=== PATIENT | female | born 1970 | race Caucasian/White ===

== ENCOUNTER 2023-06-19 09:02 | Outpatient (CLI) | payer OTHER, SELFPAY ==
--- NOTE | 2023-06-19 09:15 | CRLHL7_ITS ---
For Patients: As a result of the Century Cures Act, medical imaging exams and procedure reports are released immediately into your electronic medical record. You may view this report before your referring provider. If you have questions, please contact your health care provider. BILATERAL SCREENING MAMMOGRAM WITH COMPUTER-AIDED DETECTION TECHNIQUE: CC and MLO views were obtained. These mammographic images have been obtained using full-field digital technique. These mammographic images were interpreted with the benefit of computer-aided detection. COMPARISON FILM: 08/30/21, 05/25/20, 04/01/19. FINDINGS: There are scattered areas of fibroglandular density IMPRESSION: There is no radiographic evidence for malignancy. ASSESSMENT: BI-RADS Category 1: Negative RECOMMENDATION: Routine screening mammogram in 1 year. A lay language report of this examination will be provided to the patient. Jose Stoddard M.D. Diagnostic Radiologist [email or web address] EDWARD/Dictated by: Jose Stoddard MD @ 06/19/2023 12:29:00 PM (Electronically Signed)
== END 2023-06-19 09:03 | disposition home or self-care (01) ==
LOC: MAMMO 09:03
PROVIDERS: PCP Family Medicine; Visit Provider Physician Assistant
DX: Z12.31 Encounter for screening mammogram for malignant neoplasm of breast (principal)
CPT/HCPCS: 77067

== ENCOUNTER 2024-09-15 09:11 | Outpatient (CLI) | payer OTHER, SELFPAY ==
--- NOTE | 2024-09-15 09:15 | CRLHL7_ITS ---
For Patients: As a result of the Century Cures Act, medical imaging exams and procedure reports are released immediately into your electronic medical record. You may view this report before your referring provider. If you have questions, please contact your health care provider. BILATERAL SCREENING MAMMOGRAM WITH COMPUTER-AIDED DETECTION AND TOMOSYNTHESIS TECHNIQUE: CC and MLO views were obtained. These mammographic images have been obtained using full-field digital technique. These mammographic images were interpreted with the benefit of computer-aided detection. Breast Tomosynthesis was used in this interpretation. COMPARISON FILM: 06/19/23, 08/30/21, 05/25/20. FINDINGS: There are scattered areas of fibroglandular density. IMPRESSION: There is no radiographic evidence for malignancy. ASSESSMENT: BI-RADS Category 1: Negative RECOMMENDATION: Routine screening mammogram in 1 year. A lay language report of this examination will be provided to the patient. Jose Stoddard M.D. Diagnostic Radiologist [email or web address] SP/Dictated by: Jose Stoddard MD @ 09/15/2024 12:16:00 PM (Electronically Signed)
== END 2024-09-15 09:12 | disposition home or self-care (01) ==
LOC: MAMMO 09:13
PROVIDERS: PCP Family Medicine; Visit Provider Family Medicine
DX: Z12.31 Encounter for screening mammogram for malignant neoplasm of breast (principal)
CPT/HCPCS: 77063; 77067

== ENCOUNTER 2024-11-22 15:01 | Observation (INO) | payer OTHER, SELFPAY ==
[2024-11-22] VITALS (15 sets, daily range): BP systolic 90–142; BP diastolic 50–87; PULSE 53–103; RESP 16–18; TEMP 36.6–36.8; O2SAT 92–99; BMI 22.3; BMI 22.5
--- OUTSIDE RECORDS SUMMARY | 2024-11-22 15:03 | XMS_ITS | Clinical Summary ---
Author Organization [employer] [facility] Address [address] [place] [address] Care Team Providers Care Supervisor Bridges And Buildings Name Role Phone Gaviota Mohr MD Primary Care Provider Allergies No known active allergies Medications MIDRIN 325 MG-65 MG-100 MG CAPIndications:M igraine, unspecified, without mention of intractable migraine without mention of status migrainosus 2 caplets at the beginning of the Headache, then may take another ONE caplet each hour until a total of 5 caplets in a 12 hour period. 30 0 8 Active Active Problems Problem Noted Date Diagnosed Date Advanced maternal age, antepartum condition or c omplication 11/09/2008 IRREGULAR MENSTRUATION 03/24/2008 Other abnormal glucose 03/13/2008 Overview (03/13/2008): 100 in February 2008- needs another DYSPLASIA, CERVIX (UTERI) 09/01/1999 IRREGULAR MENSTRUATION 09/01/1999 Migraine, unspecified, witho ut mention of intractable migraine without mention of status migrainosus Immunizations Immunization Administration Dates Next Due Hepatitis B (Peds) 08/01/2005,03/09/2005, 005 Td (Age >=7 Years) 01/12/2005,05/03/1998 Tdap 03/06/2008 Family History Medical History Relation Name Comments Hypertension Father Other Father multiple system s atrophy Asthma Mother Thyroid Disease Mother hypo Alcohol/Drug Paternal Grandfather etoh Hypertension Paternal Grandfather Thyroid Disease Sister hypo Relation Name Status Comments Father Mother Paternal Grandfather Sister Social History Tobacco Use Types Packs/Day Years Used Date Smoking Tobacco: Former Cigarettes Q uit: 08/26/2004 Alcohol Use Standard Drinks/Week Comments Yes 0 (1 standard drink = 0.6 oz pur e alcohol) 2 x weekly Comments No Sex and Gender Information Value Date Recorded Sex Assigned at Not on file Legal Sex Female 5:24 AM BUSINESS WRITER Gender Identity Not on file Sexual Orientation Not on file 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 Not on file Not on file No t on file Obstetrics History Para Term AB IAB SAB Ectopic Multiple Livin g Live Births 1 0 0 0 1 1 0 0 0 0 Date Outcome GA Total Labor Labor/2nd/3rd Weight Sex Type Anes PTL Racheal A1 A5 Name Clin IAB Last Filed Vital Signs Vital Sign Reading Time Taken Comments Blood Pressure 102/67 07/17/2012 10:30 AM BUSINESS WRITER Pulse 72 07/17/2012 10:30 AM BUSINESS WRITER Temperature 36.8 C (98.3 F) 07/17/2012 6:00 AM BUSINESS WRITER Respiratory Rate 16 07/17/2012 10:30 AM BUSINESS WRITER Oxygen Saturation 100% 07/17/2012 10:30 AM BUSINESS WRITER Inhaled Oxygen Concentration - - Weight 54.4 kg (120 lb) 07/17/2012 6:00 AM BUSINESS WRITER Height 162.6 cm (5' 4) 07/17/2012 6:00 AM BUSINESS WRITER Body Mass Index 20.6 07/17/2012 6:00 AM BUSINESS WRITER Plan of Treatment Health Maintenance Due Date Last Done Comments Depression screening for age 12+ 1983 HIV for age 15-65 1986 BMI (ht and wt on same day) for age 18+ 1989 Hepatitis C screening for ag e 18-79 1989 Colonoscopy through age 75 2016 Lipids for age 45-75 2016 03/06/2008, 01/12/2004, 01/12/2004 Mammogram for age 45-75 2016 Tetanus booster 03/06/2018 03/06/2008, 12/19, 05/03/1998 Pneumococcal series for age 50+ (1 of 1 - PCV) 2021 Zoster (shingles) series for age 50+ (1 of 2) 2021 COVID-19 vaccine series (2023- season) 2024 Pap test for age 21-65 07/05/2024 , 07/05/2021, 11/30/2016, Additional history exists Influenza Vaccine (Season Ended) 2025 Tdap Completed 03/06/2008 Procedures Procedure Name Priority Date/Time Associated Diagnosis Comments HPV HIGH RISK Routine 07/05/2021 1:00 PM BUSINESS WRITER LIPID PANEL Routine 03/06/2008 8:38 AM CDT Screening Lipid Disorders from Last 3 Months or Most Recently Relevant to Health Maintenance Results * HPV HIGH RISK (07/05/2021 1:00 PM BUSINESS WRITER) TYPE 16 Negative Negative 07/09/2021 7:02 AM BUSINESS WRITER [facility] TYPE 18 Negative Negative 07/09/2021 7:02 AM BUSINESS WRITER [facility] OTHER HIGH RISK TYPES Negative Negative 07/09/2021 7:02 AM BUSINESS WRITER [facility] Other (Cervical/Vagina l) 07/05/2021 1:00 PM BUSINESS WRITER 07/07/2021 9:06 AM BUSINESS WRITER Narrative [facility] - 07/09/2021 7:02 AM BUSINESS WRITER HPV types 16, 18, 31, 33, 35, 39, 45, 51, 52, 56, 58, 59, 66 and 68 DNA were undetectable or below the pre-set threshold. Methodology: Margaux Kendall 4800 HPV Test november Fermin MAN MICROBIOLOGY Final Resu lt [facility] [address] [place] [address], * LIPID PANEL (03/06/2008 8:38 AM CDT) CHOLESTEROL,TOTAL 150 110 - 199 mg/dL [facility] TRIGLYCERIDES 96 40 - 149 mg/dL [facility] HDL CHOLESTEROL 55 >40 mg/dL [facility] CHOL/HDL RATIO 2.73 <4.51 [facility] LDL CHOLESTEROL 76 <131 mg/dL [facility] PATIENT STATUS Fasting [facility] Blood specimen (specimen) BLOOD SPECIMEN / Unknown 03/06/2008 8:38 AM CDT 03/06/2008 8:37 AM CDT us Philomena Vernon MD CHEMISTRY F inal Result [facility] [place]NAL ZIP [id number] [address] from Last 3 Months or Most Recently Relevant to Health Maintenance Insurance [facility] Advance Directives * Full Code (Latest Code Status on File) Date Activated Date Inactivated Comments 07/17/2012 6:53 AM 07/18/2012 2:07 AM Care Teams Supervisor Bridges And Buildings Relationship Specialty Start Date End Date Gaviota Mohr MD PCP - General Unknown Physician Specialty 07/10/12
--- NOTE | 2024-11-22 15:24 | CRLHL7_ITS ---
For Patients: As a result of the Century Cures Act, medical imaging exams and procedure reports are released immediately into your electronic medical record. You may view this report before your referring provider. If you have questions, please contact your health care provider. INDICATION: Right upper quadrant pain COMPARISON: none TECHNIQUE: Real time fleming scale imaging and color Doppler analysis was performed of the right upper quadrant. FINDINGS: The patient`s liver is of normal size and has uniform echogenicity. There is a normal appearance of the hepatic IVC. There is no evidence of ascites. The gallbladder is of normal size and there is no evidence of intraluminal stones or sludge. The gallbladder wall measures 2.2 mm in thickness. The common bile duct is of normal size and measures 4.3 mm in diameter at the level of the arlin hepatis. The pancreas is not well visualized. The right kidney measures 9.8 cm. Pelviectasis suspected measuring 1.3 cm. IMPRESSION: Mild right renal pelviectasis measures 1.3 cm. Dictated by Jose Stoddard MD @ 11/22/2024 5:25:09 PM (Electronically Signed)
--- NOTE | 2024-11-22 15:27 | ED_ITS ---
HPI - General Adult General Chief complaint: Abdominal Pain Stated complaint: severe abdominal pain Time Seen by Provider: 11/22/24 15:11 History of Present Illness HPI narrative: 54-year-old female has had a couple week history of epigastric pain. She has not had a history of significant GI distress, she is not really notice tenderness to touch in her abdomen, but points to her epigastrium and says it radiates up to the lower breast bone occasion she gets the opacity taste in her mouth. She has had no cardiovascular disease. She has had no diarrhea or vomiting but does feel nauseated occasionally and has had some diarrhea that started at the beginning of this illness. She has not been on recent antibiotics. She has had no rigors or chills. No change in color of her urine or bowel movement. She has taken some Tums without really any relief. Presents to the ED. She last ate about 3-1/2 hours ago. Related Data Home Medications ?Medication ?Instructions ?Recorded ?Confirmed No Known Home Medications 11/28/22 11/22/24 Allergies Allergy/AdvReac Type Severity Reaction Status Date / Time No Known Allergies Allergy Unknown Verified 11/22/24 15:07 Review of Systems Status of ROS: Reports: 6 or more systems reviewed and unremarkable except as noted in History and below [facility] Medical History Fracture of foot ?S92.909A - Unspecified fracture of unspecified foot, initial encounter for closed fracture (ICD-10) Cholestasis ?K83.1 - Obstruction of bile duct (ICD-10) Surgical History History of D&C (07/01/12) ?Z98.890 - Other specified postprocedural states (ICD-10) History of tubal ligation ?Z98.51 - Tubal ligation status (ICD-10) Family History Mother Thyroid disease Sister Thyroid disease Father High blood pressure Multiple system atrophy Grandfather High blood pressure Social History Narrative: Cisgender, heterosexual. . Two living children. 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 Rare exercise, does not follow any specific diet. Occasional/social tobacco use, reports about 1-2 cigarettes/month. Occasional/social alcohol use, reports about 3-4 times/year. No illicit drug use. Feels safe in relationships and in her community. Currently sexually active, one male partner in the last 12 months. Wears a seat belt 100% of the time. Has working smoke and carbon monoxide detectors in her home. Reports no financial concerns. What is your current living situation?: I presently have a place to live Problems where you live: no known problems Problems where you live details: none In the past 12 months, utilities in danger of being shut off: no In past 12 months, lack of transportation kept you from medical appts, meetings, work, or getting things needed for daily living: no In the past 12 mos, have been you worried that your food would run out before you had money to buy more?: never true In the past 12 mos, the food you bought just didn't last and you didn't have mo natalie to buy more?: never true Highest level of school completed/degree received: some college, no degree Smoking Status: Current every day smoker Do you use any of these nicotine containing products: E-Cigarettes Second hand tobacco smoke exposure: No How often do you have a drink containing alcohol: 2-4 times a month How many standard drinks containing alcohol do you have on a typical day: 1 or 2 How often do you have six or more drinks on one occasion: Never AUDIT-C Alcohol total score: 2 Non-prescribed substance use: denies use How often does anyone, including family, friends and others, physically hurt you : never How often does anyone, including family, friends and others, insult or talk down to you: never How often does anyone, including family, friends and others, threaten you with harm: never How often does anyone, including family, friends and others, scream or curse at you: never service: No Exam Narrative: Exam Narrative: Objective: Vital signs are within normal limits Alert orient x3 No scleral icterus no facial asymmetry Vital signs are within normal limits as mention Pulse regular Back exam unremarkable no tenderness no CVA pain Abdomen soft no rebound or peritonitis does have some mild epigastric pain to the top palpation and does feel like it radiates a little bit to her subxiphoid area with palpation. No palpable masses. Some mild right upper quadrant tenderness as well. Extremities are no edema Neurologic nonfocal. Const: Vital Signs, click to edit/add: Vital Signs - 24 hr 11/22/24 15:07 11/22/24 15:15 11/22/24 17:33 Temperature 97.9 F Pulse Rate 94 101 H Pulse Rate [Pulse Oximeter] 100 Respiratory Rate 18 Blood Pressure 130/83 Blood Pressure [Ri ght Upper Arm] 142/87 H Pulse Oximetry 99 97 96 Oxygen Delivery Me thod Room Air 11/22/24 17:34 11/22/24 17:45 11/22/24 17:47 Temperature Pulse Rate 103 H 92 84 Pulse Rate [Pulse Oximeter] Respiratory Rate Blood Pressure 105/69 Blood Pressure [Ri ght Upper Arm] Pulse Oximetry 98 92 93 Oxygen Delivery Me thod 11/22/24 17:48 11/22/24 18:00 11/22/24 18:01 Temperature Pulse Rate 82 70 71 Pulse Rate [Pulse Oximeter] Respiratory Rate Blood Pressure 115/73 Blood Pressure [Ri ght Upper Arm] Pulse Oximetry 93 98 94 Oxygen Delivery Me thod 11/22/24 18:15 11/22/24 18:17 Temperature Pulse Rate 73 69 Pulse Rate [Pulse Oximeter] Respiratory Rate Blood Pressure 114/73 Blood Pressure [Ri ght Upper Arm] Pulse Oximetry 98 97 Oxygen Delivery Me thod Course Vital Signs Vital signs: Initial Vital Signs Temperature 97.9 F 11/22/24 15:07 Temperature Source Temporal Artery Scan 11/22/24 15:07 Pulse Rate 100 11/22/24 15:07 Pulse Rhythm Regular 11/22/24 15:07 Respiratory Rate 18 11/22/24 15:07 Blood Pressure 142/87 H 11/22/24 15:07 Blood Pressure Mean 105 11/22/24 15:07 Blood Pressure Position Supine 11/22/24 15:07 Pulse Oximetry 99 11/22/24 15:07 Oxygen Delivery Method Room Air 11/22/24 15:07 Vital Signs Temperature 97.9 F 11/22/24 15:07 Pulse Rate 100 11/22/24 15:07 Respiratory Rate 18 11/22/24 15:07 Blood Pressure 142/87 H 11/22/24 15:07 Pulse Oximetry 99 11/22/24 15:07 Oxygen Delivery Method Room Air 11/22/24 15:07 Temperature 97.9 F 11/22/24 18:35 Pulse Rate 68 11/22/24 18:35 Respiratory Rate 18 11/22/24 18:35 Blood Pressure 128/76 11/22/24 18:35 Pulse Oximetry 97 11/22/24 18:35 Oxygen Delivery Method Room Air 11/22/24 18:35 Medications Administered Medications: Discontinued Medications Generic Name Dose Route Start Last Admin Trade Name Freq PRN Reason Stop Dose Admin Sodium Chloride 1,000 mls @ 6,000 mls/hr 11/22/24 15:30 11/22/24 16:30 0.9 % Sodium Chloride 1000 Ml IV 11/22/24 15:39 Infused .Q10M LETI Infusion Morphine Sulfate 4 mg 11/22/24 17:11 11/22/24 17:31 Morphine 4 Mg/Ml Inj IVP 11/22/24 17:12 4 mg ONCE ONE Administration Pantoprazole Sodium 40 mg 11/22/24 15:25 11/22/24 15:37 Pantoprazole Sodium 40 Mg Inj IVP 11/22/24 15:26 40 mg ONCE ONE Administration Medical Decision Making [facility] Narrative Medical decision making narrative: [age] year white female with history of 2 weeks of intermittent epigastric pain radiating to her subxiphoid area occasionally even up to her throat like a reflux syndrome. At this point however I think be appropriate for a get an EKG troponin make sure no acute coronary syndrome secondly doing an ultrasound of right upper quadrant to make sure did have gallstones or a cholecystitis. Will give her Protonix IV and IV fluid. Will check laboratory studies including a point of care troponin. Depending on findings treatment will be rendered accordingly. Keena patient may benefit from a proton pump inhibitor for a couple of weeks and follow-up with primary care to see if endoscopy would be indicated. Her story seems consistent with esophagitis. She also reports occasional sticking of food like it does not go down right in a does aphasia types syndrome which could be related to esophagitis as well. Lab Data Labs: Lab Results 11/22/24 11/22/24 Range/Units 15:25 15:35 WBC 7.71 (4.50-11.00) K/uL RBC 4.28 (4.00-5.20) m/uL Hgb 14.3 (12.0-16.0) gm/dL Hct 42.5 (33.0-51.0) % MCV 99 (80-100) fL MCH 33 (26-34) pg MCHC 34 (32-36) gm/dL RDW Coeff of Gwyn 12.5 (11.5-15.5) % Plt Count 316 (140-440) K/uL Neut % (Auto) 46.0 (42.0-72.0) % Lymph % (Auto) 29.8 (20-44) % [place] % (Auto) 8.6 (0.0-11.0) % Eos % (Auto) 14.7 H (0.0-7.0) % Baso % (Auto) 0.3 (0.0-3.0) % Neut # (Auto) 3.55 (1.7-7.0) K/uL Lymph # (Auto) 2.30 (0.90-2.90) K/uL [place] # (Auto) 0.70 (0.00-0.90) K/UL Eos # (Auto) 1.10 H (0.00-0.50) K/uL Baso # (Auto) 0.02 (0.00-0.30) K/uL Abs Immat Gran (auto) 0.05 (0.00-0.30) K/uL Imm/Tot Granulo (auto) 0.6 % Sodium 139 (135-149) mmol/L Potassium 3.9 (3.6-5.1) mmol/L Chloride 102 (96-114) mmol/L Carbon Dioxide 30 (20-32) mmol/L Anion Gap 7 (7-15) mEq/L BUN 12 (7-30) mg/dL Creatinine 1.0 (0.5-1.5) mg/dL Estimated Creat Clear 56.18 Estimated GFR 67 ml/min Glucose 118 H (60-115) mg/dL Calcium 9.9 (8.4-10.6) mg/dL Total Bilirubin 0.6 (0.1-1.5) mg/dL Direct Bilirubin 0.2 (0.0-0.5) mg/dL AST 36 H (12-35) U/L ALT 33 (4-35) U/L Alkaline Phosphatase 58 (40-150) U/L C-Reactive Protein < 0.5 L (0.5-1.0) mg/dL Total Protein 7.2 (6.0-8.3) g/dL Albumin 4.4 (3.3-5.0) g/dL Amylase 770 H (18-89) U/L Lipase 04441 H (23-300) U/L POC Troponin I 0.00 L (0.01-0.04) ng/ml Discharge Plan Discharge Clinical Impression: Abdominal pain, Pancreatitis Patient Disposition: Admitted As Observation
[2024-11-22] MEDS: 0.9 % SODIUM CHLORIDE 1000 ml 1,000 ML 6000 ML IV (15:37)
[2024-11-22] MEDS: PANTOPRAZOLE SODIUM 40 MG INJ IVP (15:37)
[2024-11-22 15:50] LABS: Basophils Absolute Auto 0.02 K/uL (0.00-0.30); Basophils Percent Auto 0.3 % (0.0-3.0); Eosinophils Percent Auto 14.7 % (0.0-7.0); Hematocrit 42.5 % (33.0-51.0); Hemoglobin* 14.3 gm/dL (12.0-16.0); Immature Granulocytes Abs Auto 0.05 K/uL (0.00-0.30); Immature Granulocytes Pct Auto 0.6 %; Lymphocytes Percent Auto 29.8 % (20-44); Mean Corpuscular HGB Conc 34 gm/dL (32-36); Mean Corpuscular Hemoglobin 33 pg (26-34); Mean Corpuscular Volume 99 fL (80-100); Monocytes Percent Auto 8.6 % (0.0-11.0); Neutrophils Absolute Auto 3.55 K/uL (1.7-7.0); Platelet Count* 316 K/uL (140-440); RDW Coefficient of Variation % 12.5 % (11.5-15.5); Red Blood Count 4.28 m/uL (4.00-5.20); White Blood Count* 7.71 K/uL (4.50-11.00)
[2024-11-22 15:52] LABS: Slide Review Reflex No
--- OUTSIDE RECORDS SUMMARY | 2024-11-22 15:59 | XMS_ITS | Clinical Summary ---
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 on file Not on file No [...] Comments Blood Pressure 102/67 07/17/2012 10:30 AM CRUDE TESTER Pulse 72 07/17/2012 10:30 AM CRUDE TESTER Temperature 36.8 C (98.3 F) 07/17/2012 6:00 AM CRUDE TESTER Respiratory Rate 16 07/17/2012 10:30 AM CRUDE TESTER Oxygen Saturation 100% 07/17/2012 10:30 AM CRUDE TESTER Inhaled Oxygen Concentration - - Weight 54.4 kg (120 lb) 07/17/2012 6:00 AM CRUDE TESTER Height 162.6 cm (5' 4) 07/17/2012 6:00 AM CRUDE TESTER Body Mass Index 20.6 07/17/2012 6:00 AM CRUDE TESTER Plan of Treatment Health Maintenance Due Date [...] HPV HIGH RISK Routine 07/05/2021 1:00 PM CRUDE TESTER LIPID PANEL Routine 03/06/2008 8:38 AM CDT Screening Lipid Disorders from Last 3 Months or Most Recently Relevant to Health Maintenance Results * HPV HIGH RISK (07/05/2021 1:00 PM CRUDE TESTER) TYPE 16 Negative Negative 07/09/2021 7:02 AM CRUDE TESTER [facility] TYPE 18 Negative Negative 07/09/2021 7:02 AM CRUDE TESTER [facility] OTHER HIGH RISK TYPES Negative Negative 07/09/2021 7:02 AM CRUDE TESTER [facility] Other (Cervical/Vagina l) 07/05/2021 1:00 PM CRUDE TESTER 07/07/2021 9:06 AM CRUDE TESTER Narrative [facility] - 07/09/2021 7:02 AM CRUDE TESTER HPV types 16, 18, 31, 33, 35, 39, 45, 51, 52, 56, 58, 59, 66 and 68 DNA were undetectable or below the pre-set threshold. Methodology: Margaux Kendall 4800 HPV Test november Ferm[place] MAN MICROBIOLOGY Final Resu lt [facility] [address] [place] [address], * LIPID PANEL (03/06/2008 8:38 AM CDT) CHOLESTEROL,TOTAL 150 110 - 199 mg/dL [facility] TRIGLYCERIDES 96 40 - 149 mg/dL [facility] HDL CHOLESTEROL 55 >40 mg/dL [facility] CHOL/HDL RATIO 2.73 <4.51 [facility] LDL CHOLESTEROL 76 <131 mg/dL [facility] PATIENT STATUS Fasting [facility] Blood specimen (specimen) BLOOD SPECIMEN / Unknown 03/06/2008 8:38 AM CDT 03/06/2008 8:37 AM CDT us Philomena Vernon MD CHEMISTRY F inal Result [facility] INTERNAL ZIP [phone] [address] from Last 3 Months or Most Recently Relevant to Health Maintenance Insurance [facility] Advance Directives * Full Code (Latest Code Status on File) Date Activated Date Inactivated Comments 07/17/2012 6:53 AM 07/18/2012 2:07 AM Care Teams Hat Forming Machine Feeder Relationship Specialty Start Date End Date Gaviota Mohr MD PCP - General Unknown Physician Specialty 07/10/12
[2024-11-22 16:00] LABS: Albumin* 4.4 g/dL (3.3-5.0); Chloride* 102 mmol/L (96-114); Potassium* 3.9 mmol/L (3.6-5.1); Sodium* 139 mmol/L (135-149)
[2024-11-22 16:03] LABS: Alanine Aminotransferase* 33 U/L (4-35); Alkaline Phosphatase* 58 U/L (40-150); Amylase* 770 U/L (18-89); Anion Gap 7 mEq/L (7-15); Aspartate Amino Transferase* 36 U/L (12-35); Bilirubin Direct* 0.2 mg/dL (0.0-0.5); Bilirubin Total* 0.6 mg/dL (0.1-1.5); Blood Urea Nitrogen* 12 mg/dL (7-30); Carbon Dioxide* 30 mmol/L (20-32); Est. Creatinine Clearance* 56.18; Estimated Glomerular Filt Rate 67 ml/min; Total Protein* 7.2 g/dL (6.0-8.3)
[2024-11-22 16:04] LABS: Calcium* 9.9 mg/dL (8.4-10.6); Glucose* 118 mg/dL (60-115)
[2024-11-22 16:07] LABS: C Reactive Protein* < 0.5 mg/dL (0.5-1.0)
[2024-11-22 16:55] LABS: Lipase* 11293 U/L (23-300)
--- NOTE | 2024-11-22 17:01 | CRLHL7_ITS ---
For Patients: As a result of the Century Cures Act, medical imaging exams and procedure reports are released immediately into your electronic medical record. You may view this report before your referring provider. If you have questions, please contact your health care provider. INDICATION: Upper abdominal pain, diarrhea, nausea.. TECHNIQUE: CT abdomen and pelvis acquired with 64 cc Isovue 370 IV contrast. COMPARISON: None. FINDINGS: Lower chest: Scattered atelectasis. Liver: Unremarkable. Normal in size and attenuation. No suspicious masses. Gallbladder and bile ducts: Unremarkable. No stones or inflammation. No biliary dilatation. Pancreas: Unremarkable. No mass or inflammation. Spleen: Unremarkable. Normal in size. No masses. Adrenal glands: Unremarkable. No nodules. Kidneys: Bilateral renal sinuses. No suspicious masses, stones, or hydronephrosis. GI tract: Mild colonic stool burden. Colonic diverticulosis. Normal in caliber. No sign of mass or inflammation. Normal appendix. Vasculature: Abdominal aorta is normal in caliber. Mesenteric arteries are patent. Lymph nodes: No lymphadenopathy. Peritoneum/Abdominal Wall: Unremarkable. No sign of mass or infiltration. No free air or significant free fluid. Pelvis: Unremarkable. Bones: Unremarkable for age. IMPRESSION: No acute intra-abdominal/pelvic abnormality. Please note that all CT scans at this facility use dose modulation, iterative reconstruction, and/or weight-based dosing when appropriate to reduce radiation dose to as low as reasonably achievable. Dictated by Anil Graff MD @ 11/22/2024 5:46:24 PM (Electronically Signed)
[2024-11-22] MEDS: MORPHINE 4 MG/ML INJ IVP (17:31)
--- NOTE | 2024-11-22 18:55 | PC.NURSE ---
End of Shift: Patient admitted to med surg at 1826. VSS, afebrile.
--- NOTE | 2024-11-22 19:46 | P.IMHP_ITS ---
Assessment and Plan Assessment and plan (1) Abdominal pain: Problem comment: -etiology not yet determined -consider outpatient EGD with biopsies for Helicobacter as well as biopsies for assessment for celiac sprue -consider outpatient MRCP to further assess for pancreatic and biliary disease Status: Acute (2) Elevation of serum amylase level with elevation of serum lipase level: Problem comment: -11/22/2024: Epigastric pain, amylase 700, lipase 11,000, with normal abdominal ultrasound and CT scan of abdomen and pelvis. I doubt patient has an acute or chronic pancreatitis. I suspect the elevation in amylase and lipase are due to another cause. Differential diagnosis includes upper GI pathology such as esophageal, gastric, duodenal inflammation, ulceration or neoplasm, celiac disease, inflammatory bowel disease, HIV disease, hepatitis-C infection, sarcoidosis, drugs/nutritional supplements. -clear liquids orally, IV fluids, initiate scheduled PPI, famotidine p.r.n., serial labs. -check stool for Helicobacter pylori, check urine HCG, check urine for drugs of abuse, check hemoglobin A1c, check tissue transglutaminase IgA level. -in outpatient setting consider checking HIV and hepatitis C. Status: Acute (3) Eosinophilia: Problem comment: -recheck in the morning Status: Acute Plan 1. I reviewed my impression and recommendations with the patient 2. Explained to her that we may likely not find the cause of her discomfort. Our hope is to initiate assessment of this while in the hospital and continue this in the outpatient setting under the guidance of her primary long term care pharmacist. 3. Answered her questions to her satisfaction. 4. She is agreeable with above stated plans and recommendations. Total Time Spent Total Time Spent: 65 minutes Hospitalist- H&P: HPI History of Present Illness Date Seen: 11/22/24 Chief complaint: severe abdominal pain Narrative: Rachael Ortiz is a 54 year old woman presents with the 2 week history of intermittent epigastric pain. Prior to 2 weeks ago she was in her usual state of health. She is generally active able to carry out all activities of daily living without any limitations. Had no health concerns prior to 2 weeks ago. About 2 days before the onset of the intermittent epigastric pain she had loose stools maybe 3-4 times per day. Jacque is it seemed like the loose stools resolved she woke up 1 morning with what she describes as heartburn in her epigastrium. This heartburn sensation lasts generally speaking about 30 minutes to as long as 1 hour. Has tried [id number] Tums without resolution. Since this time she has had these episodes about 2-3 times per day. These have never awaken her during the night. These have typically occurred during the daytime. She is reasonably certain it is in her digestive tract. In fact about 3 nights ago when she was eating pork chops she felt like maybe some of the food did not move all the way down her esophagus as it normally does and adjust took longer for it to move along into her stomach. She felt like the food was stuck in her esophagus for short period of time. Has not had fevers, rigors, diaphoresis. Has not had nausea or vomiting. Denies weight loss except for what she is working on to try to achieve. Denies night sweats. Today the episode was lasting about 3 hours and so she finally decided that she better come in for assessment. It seems to have resolved by the time she arrived here. As I am visiting her she starting to sense that she may be getting another episode. Also today she has had 2 episodes of loose stools. Again denies any blood loss. Denies melena. Has not had any recent travel. When she was in her 20s she describes heartburn that was worse when she ate spicy foods and better when she avoids spicy foods. She changed and adjusted her diet and has not had that issue since. The heartburn she describes now is reminiscent to her of the type of heartburn she experience previously. She has modified her diet presently but has not noticed an improvement in her symptoms. She does take several [id number] medications including K 2 vitamin, vitamin D3, vitamin-C, magnesium glycinate, ashwagandha, yerba magic (with s everal ingredients). Also since new 's of 2024 she has decreased the amount of bread and pasta she consumes. She tells me that she drinks alcoholic beverages maybe 2-3 times per month, either Amelia or wine, usually only 1 drink, maybe 2 drinks at the most. Last time she drank was last night. Prior to that the last time she drank was the weekend prior. Does not notice improvement or worsening of her symptoms with association of exposure to alcohol. Does vape. She states she vapes throughout the day. Does not smoke tobacco products otherwise. In addition to the family history listed below additional family history includes: Paternal grandfather suffered from alcohol use disorder, mother had asthma, father had hypertension, paternal grandfather had hypertension, father had multi-system atrophy, mother and sister with hypothyroidism, no family history of celiac disease, mother sister and brother had diverticulitis, sister nephew had alcohol-induced pancreatic complications. Review of Systems Status of ROS: Reports: 10 or more systems reviewed and unremarkable except as noted in History and below Narrative: Denies chest heaviness, pressure, tightness, pain. Epigastric discomfort does not radiate into the back. Denies syncope or near-syncope. Denies palpitations. Denies edema. Lives home with her and 2 children, 14-year-old daughter and 10-year-old son. They are healthy and well. They have not had similar symptoms. [facility] Medical History Fracture of foot ?S92.909A - Unspecified fracture of unspecified foot, initial encounter for closed fracture (ICD-10) Cholestasis ?K83.1 - Obstruction of bile duct (ICD-10) Surgical History History of D&C (07/01/12) ?Z98.890 - Other specified postprocedural states (ICD-10) History of tubal ligation ?Z98.51 - Tubal ligation status (ICD-10) Family History Mother Thyroid disease Sister Thyroid disease Father High blood pressure Multiple system atrophy Grandfather High blood pressure Social History Narrative: Cisgender, heterosexual. . Two living children. Orthodontic dental medical staff assistant. Associates degree. Rare exercise, does not follow any specific diet. Occasional/social tobacco use, reports about 1-2 cigarettes/month. Occasional/social alcohol use, reports about 3-4 times/year. No illicit drug use. Feels safe in relationships and in her community. Currently sexually active, one male partner in the last 12 months. Wears a seat belt 100% of the time. Has working smoke and carbon monoxide detectors in her home. Reports no financial concerns. What is your current living situation?: I presently have a place to live Problems where you live: no known problems Problems where you live details: none In the past 12 months, utilities in danger of being shut off: no In past 12 months, lack of transportation kept you from medical appts, meetings, work, or getting things needed for daily living: no In the past 12 mos, have been you worried that your food would run out before you had money to buy more?: never true In the past 12 mos, the food you bought just didn't last and you didn't have money to buy more?: never true Highest level of school completed/degree received: some college, no degree Smoking Status: Current every day smoker Do you use any of these nicotine containing products: E-Cigarettes Second hand tobacco smoke exposure: No How often do you have a drink containing alcohol: 2-4 times a month How many standard drinks containing alcohol do you have on a typical day: 1 or 2 How often do you have six or more drinks on one occasion: Never AUDIT-C Alcohol total score: 2 Non-prescribed substance use: denies use How often does anyone, including family, friends and others, physically hurt you : never How often does anyone, including family, friends and others, insult or talk down to you: never How often does anyone, including family, friends and others, threaten you with harm: never How often does anyone, including family, friends and others, scream or curse at you: never service: No Meds Home Medications and Allergies Home Medications ?Medication ?Instructions ?Recorded ?Confirmed ?Type No Known Home Medications 11/28/22 11/22/24 History Home Medication Comments: See history of present illness Allergies Allergy/AdvReac Type Severity Reaction Status Date / Time No Known Allergies Allergy Unknown Verified 11/22/24 15:07 Exam Narrative: Exam Narrative: Examined patient in her hospital room and in hallways in the hospital. Appears comfortable no acute distress. Alert and oriented x4. Friendly, articulate, cooperative. No jaundice, no icterus. No petechiae, no rashes, no cyanosis. Vision and hearing are adequate. Pupils equally round and reactive to light and accommodation. Conjugate gaze. Midline nasal septum. Normal nasal mucosa. Dentition in good repair. Moist buccal mucosa. Able to swallow without any difficulties. Neck is supple. Midline trachea. No head neck lymphadenopathy. Lungs are clear to auscultation without wheezing, rhonchi, or rales. Chest wall excursions are full. No CVA tenderness to thumping. Heart tones with regular rhythm, normal S1-S2, without murmur, gallop, rub. PMI is not laterally displaced. Abdomen with active bowel sounds, soft, nontender. No organomegaly or masses. No rebound or guarding. Independent in transfer, station, gait. No focal motor neurologic deficits. Cranial nerves 3-12 grossly normal. Amylase is 700 and lipase is 11,000. Liver function tests are essentially normal. Const: Vital Signs, click to edit/add: Vital Signs - 24 hr 11/22/24 15:07 11/22/24 15:15 11/22/24 17:33 Temperature 97.9 F Pulse Rate 94 101 H Pulse Rate [Pulse Oximeter] 100 Respiratory Rate 18 Blood Pressure 130/83 Blood Pressure [Ri ght Arm] Blood Pressure [Ri ght Upper Arm] 142/87 H Pulse Oximetry 99 97 96 Oxygen Delivery Me thod Room Air 11/22/24 17:34 11/22/24 17:45 11/22/24 17:47 Temperature Pulse Rate 103 H 92 84 Pulse Rate [Pulse Oximeter] Respiratory Rate Blood Pressure 105/69 Blood Pressure [Ri ght Arm] Blood Pressure [Ri ght Upper Arm] Pulse Oximetry 98 92 93 Oxygen Delivery Me thod 11/22/24 17:48 11/22/24 18:00 11/22/24 18:01 Temperature Pulse Rate 82 70 71 Pulse Rate [Pulse Oximeter] Respiratory Rate Blood Pressure 115/73 Blood Pressure [Ri ght Arm] Blood Pressure [Ri ght Upper Arm] Pulse Oximetry 93 98 94 Oxygen Delivery Me thod 11/22/24 18:15 11/22/24 18:17 11/22/24 18:35 Temperature 97.9 F Pulse Rate 73 69 Pulse Rate [Pulse Oximeter] 68 Respiratory Rate 18 Blood Pressure 114/73 Blood Pressure [Ri ght Arm] 128/76 Blood Pressure [Ri ght Upper Arm] Pulse Oximetry 98 97 97 Oxygen Delivery Me thod Room Air Hospitalist - H&P: Result Labs Labs: Short CBC 11/22/24 Range/Units 15:35 WBC 7.71 (4.50-11.00) K/uL Hgb 14.3 (12.0-16.0) gm/dL Hct 42.5 (33.0-51.0) % Plt Count 316 (140-440) K/uL BMP 11/22/24 15:35 Sodium 139 Potassium 3.9 Chloride 102 Carbon Dioxide 30 BUN 12 Creatinine 1.0 Glucose 118 H Calcium 9.9 Liver Function 11/22/24 Range/Units 15:35 Total Bilirubin 0.6 (0.1-1.5) mg/dL Direct Bilirubin 0.2 (0.0-0.5) mg/dL AST 36 H (12-35) U/L ALT 33 (4-35) U/L Alkaline Phosphatase 58 (40-150) U/L Albumin 4.4 (3.3-5.0) g/dL ECG Attestation: I personally reviewed and interpreted this ECG as follows: ECG interpretation date: 11/22/24 Prior ECG tracings: not available for review Interpretation: Normal sinus rhythm without ischemic or infarction pattern. Imaging US - abdomen: Radiologist's impression: FINDINGS: The patient`s liver is of normal size and has uniform echogenicity. There is a normal appearance of the hepatic IVC. There is no evidence of ascites. The gallbladder is of normal size and there is no evidence of intraluminal stones or sludge. The gallbladder wall measures 2.2 mm in thickness. The common bile duct is of normal size and measures 4.3 mm in diameter at the level of the arlin hepatis. The pancreas is not well visualized. The right kidney measures 9.8 cm. Pelviectasis suspected measuring 1.3 cm. IMPRESSION: Mild right renal pelviectasis measures 1.[address] scan of abdomen and pelvis: Radiologist's impression: FINDINGS: Lower chest: Scattered atelectasis. Liver: Unremarkable. Normal in size and attenuation. No suspicious masses. Gallbladder and bile ducts: Unremarkable. No stones or inflammation. No biliary dilatation. Pancreas: Unremarkable. No mass or inflammation. Spleen: Unremarkable. Normal in size. No masses. Adrenal glands: Unremarkable. No nodules. Kidneys: Bilateral renal sinuses. No suspicious masses, stones, or hydronephrosis. GI tract: Mild colonic stool burden. Colonic diverticulosis. Normal in caliber. No sign of mass or inflammation. Normal appendix. Vasculature: Abdominal aorta is normal in caliber. Mesenteric arteries are patent. Lymph nodes: No lymphadenopathy. Peritoneum/Abdominal Wall: Unremarkable. No sign of mass or infiltration. No free air or significant free fluid. Pelvis: Unremarkable. Bones: Unremarkable for age. IMPRESSION: No acute intra-abdominal/pelvic abnormality.
[2024-11-22] MEDS: 0.9 % SODIUM CHLORIDE 1000 ml 1,000 ML 125 ML IV (20:43)
[2024-11-22 20:44] LABS: Triglycerides* 75 mg/dL (40-149)
[2024-11-22] MEDS: SODIUM CHLORIDE 0.9 % (FLUSH) 10 ML SYRINGE 5 ML IVF (20:47)
[2024-11-22] MEDS: OMEPRAZOLE 20 MG CAPSULE DR PO (22:02)
[2024-11-22] MEDS: KETOROLAC 30 MG/ML inj IVP (22:02)
[2024-11-23 00:03] LABS: Ur HCG Qualitative* Negative (Negative)
[2024-11-23 03:00] VITALS: RESP 16
[2024-11-23] MEDS: 0.9 % SODIUM CHLORIDE 1000 ml 1,000 ML 125 ML IV (04:27)
[2024-11-23 07:00] VITALS: BP 103/63; PULSE 61; RESP 16; RESP 18; RESP 61; O2SAT 97
[2024-11-23 07:03] LABS: Basophils Absolute Auto 0.03 K/uL (0.00-0.30); Basophils Percent Auto 0.3 % (0.0-3.0); Eosinophils Percent Auto 37.4 % (0.0-7.0); Hematocrit 38.9 % (33.0-51.0); Hemoglobin* 12.7 gm/dL (12.0-16.0); Immature Granulocytes Abs Auto 0.01 K/uL (0.00-0.30); Immature Granulocytes Pct Auto 0.1 %; Lymphocytes Absolute Auto 3.53 K/uL (0.90-2.90); Lymphocytes Percent Auto 35.1 % (20-44); Mean Corpuscular HGB Conc 33 gm/dL (32-36); Mean Corpuscular Hemoglobin 34 pg (26-34); Mean Corpuscular Volume 103 fL (80-100); Monocytes Percent Auto 6.6 % (0.0-11.0); Neutrophils Percent Auto 20.5 % (42.0-72.0); Platelet Count* 273 K/uL (140-440); RDW Coefficient of Variation % 12.9 % (11.5-15.5); Red Blood Count 3.79 m/uL (4.00-5.20); White Blood Count* 10.05 K/uL (4.50-11.00)
--- NOTE | 2024-11-23 07:08 | PC.NURSE ---
Pt alert, oriented and vitally stable. Pain rated 3-4/10, though increases to 7-8/10 with flares, MD notified, ketorlac given, pt stated improvement. Pt up independently. Pt in bed, appears to be resting, call light within reach.?
[2024-11-23 07:09] LABS: Amphetamine Screen Urine Negative (Negative); Barbiturate Screen Urine Negative (Negative); Benzodiazepines Screen Urine Negative (Negative); Cannabinoid Screen Urine Negative (Negative); Cocaine Screen Urine Negative (Negative); Methadone Screen Urine Negative (Negative); Methamphetamines Screen Urine Negative (Negative); Opiate Screen Urine POSITIVE (Negative); Oxycodone Screen Urine Negative (Negative); Phencyclidine Screen Urine Negative (Negative); Tricyclic Antidepressant Urine Negative (Negative)
[2024-11-23 07:12] LABS: Slide Review Reflex No
[2024-11-23 07:14] LABS: Albumin* 3.6 g/dL (3.3-5.0)
[2024-11-23 07:17] LABS: Amylase* 181 U/L (18-89)
[2024-11-23 07:18] LABS: Alanine Aminotransferase* 27 U/L (4-35); Alkaline Phosphatase* 41 U/L (40-150); Aspartate Amino Transferase* 30 U/L (12-35); Bilirubin Direct* 0.2 mg/dL (0.0-0.5); Bilirubin Total* 0.6 mg/dL (0.1-1.5); Lipase* 359 U/L (23-300)
[2024-11-23 07:20] LABS: INR 1.07 (0.91-1.10); Prothrombin Time 14.8 Seconds
--- NOTE | 2024-11-23 08:06 | CRLHL7_ITS ---
For Patients: As a result of the Cures Act, medical imaging exams and procedure reports are released immediately into your electronic medical record. You may view this report before your referring provider. If you have questions, please contact your health care provider. INDICATION: Pancreatitis COMPARISON: None. TECHNIQUE: Mulitplanar, mutliparametric MR imaging of the abdomen without intravenous contrast, MRCP with 3D reconstructions. FINDINGS: Lower chest: Unremarkable Liver: Hepatic cyst with calcified granuloma at the hepatic dome. Gallbladder: Distended. Bile ducts: No biliary ductal dilation. No evidence of choledocholithiasis. Spleen: Unremarkable. Pancreas: Unremarkable. Adrenal glands: Unremarkable. Kidneys and Ureters: Bilateral parapelvic cysts. Lymph Nodes: No enlarged lymph nodes. Vasculature: Unremarkable. Bowel: Unremarkable Peritoneum: Unremarkable. Abdominal wall: Unremarkable Bones: Unremarkable. IMPRESSION: No MR evidence of pancreatitis. No choledocholithiasis. Dictated by Dianelys Douglas MD @ 11/23/2024 10:28:19 AM (Electronically Signed)
[2024-11-23] MEDS: KETOROLAC 15 MG/ML inj IVP (08:24)
[2024-11-23] MEDS: OMEPRAZOLE 20 MG CAPSULE DR PO (08:25)
[2024-11-23 08:35] LABS: H pylori Ag Stool* Negative (Negative)
[2024-11-23 11:00] VITALS: BP 94/58; PULSE 73; RESP 18; TEMP 36.4; O2SAT 97
[2024-11-23 15:00] VITALS: BP 101/62; PULSE 71; RESP 16; RESP 18; O2SAT 98
--- NOTE | 2024-11-23 15:36 | P.DS_ITS ---
DS: Providers Provider Date Seen: 11/23/24 Date of admission: 11/22/24 18:21 Primary care physician: Miguel Katz MD Admitting Clinician: Michael Calderón MD Attending Physician on discharge: Marcial Lyn MD Date of Discharge: 11/23/24 DS: Diagnosis Discharge Diagnosis (1) Pancreatitis: Status: Acute Problem details: Patient with 2 week history of intermittent epigastric pain and marked elevation of lipase at 11,000 but normal imaging of pancreas, liver, biliary tree. Etiology unknown. Clinically improved would recommend outpatient follow-up with dispensing optician apprentice specializing and pancreatic conditions. (2) Elevation of serum amylase level with elevation of serum lipase level: Status: Acute Problem details: -11/22/2024: Epigastric pain, amylase 700, lipase 11,000, with normal MRCP, abdominal ultrasound and CT scan of abdomen and pelvis. Differential diagnosis includes upper GI pathology such as esophageal, gastric, duodenal inflammation, ulceration or neoplasm, celiac disease, inflammatory bowel disease, HIV disease, hepatitis-C infection, sarcoidosis, drugs/nutritional supplements. -clear liquids orally, IV fluids, initiate scheduled PPI, famotidine p.r.n., serial labs. -check stool for Helicobacter pylori, check urine HCG, check urine for drugs of abuse, check hemoglobin A1c, check tissue transglutaminase IgA level. -in outpatient setting consider checking HIV and hepatitis C. (3) Gastroesophageal reflux: Status: Acute Problem details: In addition to her epigastric pain she is reporting a sense of reflux of gastric fluid into her throat. Recommend trial of esomeprazole (4) Eosinophilia: Status: Acute Problem details: Significant eosinophilia: Absolute count of 1.1 on admission and 3.8 today. No other obvious symptoms or illness to explain this other than her pancreatitis. Possibly an autoimmune disease. No obvious allergy, infection, malignancy. DS: Summary Hospital Course Hospital Course: ledy Ortiz is a 54 year old woman presents with the 2 week history of intermittent epigastric pain. Prior to 2 weeks ago she was in her usual state of health. She is generally active able to carry out all activities of daily living without any limitations. Had no health concerns prior to 2 weeks ago. About 2 days before the onset of the intermittent epigastric pain she had loose stools maybe 3-4 times per day. Jacque is it seemed like the loose stools re solved she woke up 1 morning with what she describes as heartburn in her epigastrium. This heartburn sensation lasts generally speaking about 30 minutes to as long as 1 hour. Has tried [id number] Tums without resolution. Since this time she has had these episodes about 2-3 times per day. These have never awaken her during the night. These have typically occurred during the daytime. She is reasonably certain it is in her digestive tract. In fact about 3 nights ago when she was eating pork chops she felt like maybe some of the food did not move all the way down her esophagus as it normally does and adjust took longer for it to move along into her stomach. She felt like the food was stuck in her esophagus for short period of time. Has not had fevers, rigors, diaphoresis. Has not had nausea or vomiting. Denies weight loss except for what she is working on to try to achieve. Denies night sweats. Today the episode was lasting about 3 hours and so she finally decided that she better come in for assessment. It seems to have resolved by the time she arrived here. As I am visiting her she starting to sense that she may be getting another episode. Also today she has had 2 episodes of loose stools. Again denies any blood loss. Denies melena. Has not had any recent travel. When she was in her 20s she describes heartburn that was worse when she ate spicy foods and better when she avoids spicy foods. She changed and adjusted her diet and has not had that issue since. The heartburn she describes now is reminiscent to her of the type of heartburn she experience previously. She has modified her diet presently but has not noticed an improvement in her symptoms. She does take several [id number] medications including K 2 vitamin, vitamin D3, vitamin-C, magnesium glycinate, ashwagandha, yerba magic (with several ingredients). Also since new year's of 2024 she has decreased the amount of bread and pasta she consumes. She tells me that she drinks alcoholic beverages maybe 2-3 times per month, either [place] or wine, usually only 1 drink, maybe 2 drinks at the most. Last time she drank was last night. Prior to that the last time she drank was the weekend prior. Does not notice improvement or worsening of her symptoms with association of exposure to alcohol. Does vape. She states she vapes throughout the day. Does not smoke tobacco products otherwise. In addition to the family history listed below additional family history includes: Paternal grandfather suffered from alcohol use disorder, mother had asthma, father had hypertension, paternal grandfather had hypertension, father had multi-system atrophy, mother and sister with hypothyroidism, no family history of celiac disease, mother sister and brother had diverticulitis, sister nephew had alcohol-induced pancreatic complications. Patient reports today feeling better. Pain and reflux symptoms are improved. She is hungry and wants to eat. A trial of eating a normal diet did not result in any worsening of her symptoms and she is anxious to go home. She has been treated with omeprazole. Status at Discharge Overall status at discharge: patient is progressing back to baseline Time Spent with Patient Time attestation: Total time spent providing and/or coordinating discharge services: 55 mins Time spent: Greater than 30 minutes Exam Narrative: Exam Narrative: She is alert pleasant and appears in no distress. Respirations are clear to auscultation. Cardiovascular: S1, S2, regular rate and rhythm. Abdomen: Bowel sounds active. Abdomen is soft without tenderness or mass. Extremities without edema. Const: Vital Signs, click to edit/add: Vital Signs - 24 hr 11/22/24 17:33 11/22/24 17:34 11/22/24 17:45 Temperature Pulse Rate 101 H 103 H 92 Pulse Rate [Pulse Oximeter] Respiratory Rate Blood Pressure 130/83 Blood Pressure [Ri ght Arm] Pulse Oximetry 96 98 92 Oxygen Delivery Or thod 11/22/24 17:47 11/22/24 17:48 11/22/24 18:00 Temperature Pulse Rate 84 82 70 Pulse Rate [Pulse Oximeter] Respiratory Rate Blood Pressure 105/69 Blood Pressure [Ri ght Arm] Pulse Oximetry 93 93 98 Oxygen Delivery Or thod 11/22/24 18:01 11/22/24 18:15 11/22/24 18:17 Temperature Pulse Rate 71 73 69 Pulse Rate [Pulse Oximeter] Respiratory Rate Blood Pressure 115/73 114/73 Blood Pressure [Ri ght Arm] Pulse Oximetry 94 98 97 Oxygen Delivery Or thod 11/22/24 18:35 11/22/24 19:00 11/22/24 20:22 Temperature 97.9 F 98.2 F Pulse Rate Pulse Rate [Pulse Oximeter] 68 63 Respiratory Rate 18 16 18 Blood Pressure Blood Pressure [Ri ght Arm] 128/76 107/75 Pulse Oximetry 97 97 97 Oxygen Delivery Me thod Room Air Room Air Room Air 11/22/24 23:00 11/22/24 23:00 11/22/24 23:00 Temperature 98.1 F Pulse Rate Pulse Rate [Pulse Oximeter] 53 L 53 L Respiratory Rate 18 18 Blood Pressure Blood Pressure [Ri ght Arm] 90/50 L Pulse Oximetry 97 98 Oxygen Delivery Me thod Room Air 11/23/24 03:00 11/23/24 07:00 11/23/24 07:00 Temperature Pulse Rate Pulse Rate [Pulse Oximeter] 61 Respiratory Rate 16 16 61 H Blood Pressure Blood Pressure [Ri ght Arm] Pulse Oximetry 97 Oxygen Delivery Me thod Room Air 11/23/24 07:00 11/23/24 11:00 Temperature 97.5 F L Pulse Rate Pulse Rate [Pulse Oximeter] 61 73 Respiratory Rate 18 18 Blood Pressure Blood Pressure [Ri ght Arm] 103/63 94/58 L Pulse Oximetry 97 97 Oxygen Delivery Me thod Room Air Room Air Documenting provider has reviewed patient's vital signs: yes DS: Data Data Completed and Pending Labs on day of discharge: Labs from last 24 hours 11/23/24 11/23/24 11/23/24 14:19 08:49 06:37 WBC RBC Hgb Hct MCV MCH MCHC RDW Coeff of Gwyn Plt Count Neut % (Auto) Lymph % (Auto) [place] % (Auto) Eos % (Auto) Baso % (Auto) Neut # (Auto) Lymph # (Auto) [place] # (Auto) Eos # (Auto) Baso # (Auto) Abs Immat Gran (auto) Imm/Tot Granulo (auto) INR Sodium Potassium Chloride Carbon Dioxide Anion Gap BUN Creatinine Estimated Creat Clear Estimated GFR Glucose Hemoglobin A1c Calcium Total Bilirubin Direct Bilirubin AST ALT Alkaline Phosphatase C-Reactive Protein Total Protein Albumin Triglycerides Amylase Lipase Urine HCG, Qual Urine Opiates Screen POSITIVE A Ur Oxycodone Screen Negative Urine Methadone Screen Negative Ur Barbiturates Screen Negative U Tricyclic Antidepress Negative Ur Phencyclidine Scrn Negative Ur Amphetamines Screen Negative U Methamphetamines Scrn Negative U Benzodiazepines Scrn Negative Urine Cocaine Screen Negative U Marijuana (THC) Screen Negative Ur Drug Screen Comment See Note TTG-6 IgA Ab Stool H. pylori Ag Lab Acknowledgement Test Added Test Added POC Troponin I 11/23/24 11/22/24 11/22/24 06:05 23:50 20:22 WBC 10.05 RBC 3.79 L Hgb 12.7 Hct 38.9 MCV 103 H MCH 34 MCHC 33 RDW Coeff of Gwyn 12.9 Plt Count 273 Neut % (Auto) 20.5 L Lymph % (Auto) 35.1 [place] % (Auto) 6.6 Eos % (Auto) 37.4 H Baso % (Auto) 0.3 Neut # (Auto) 2.10 Lymph # (Auto) 3.53 H [place] # (Auto) 0.70 Eos # (Auto) 3.80 H Baso # (Auto) 0.03 Abs Immat Gran (auto) 0.01 Imm/Tot Granulo (auto) 0.1 INR 1.07 Sodium Potassium Chloride Carbon Dioxide Anion Gap BUN Creatinine Estimated Creat Clear Estimated GFR Glucose Hemoglobin A1c Pending Calcium Total Bilirubin 0.6 Direct Bilirubin 0.2 AST 30 ALT 27 Alkaline Phosphatase 41 C-Reactive Protein 1.0 Total Protein 6.0 Albumin 3.6 Triglycerides Amylase 181 H Lipase 359 H Urine HCG, Qual Negative Urine Opiates Screen Ur Oxycodone Screen Urine Methadone Screen Ur Barbiturates Screen U Tricyclic Antidepress Ur Phencyclidine Scrn Ur Amphetamines Screen U Methamphetamines Scrn U Benzodiazepines Scrn Urine Cocaine Screen U Marijuana (THC) Screen Ur Drug Screen Comment TTG-6 IgA Ab Pending Stool H. pylori Ag Negative Lab Acknowledgement Test Added POC Troponin I 11/22/24 11/22/24 15:35 15:25 WBC 7.71 RBC 4.28 Hgb 14.3 Hct 42.5 MCV 99 MCH 33 MCHC 34 RDW Coeff of Gwyn 12.5 Plt Count 316 Neut % (Auto) 46.0 Lymph % (Auto) 29.8 [place] % (Auto) 8.6 Eos % (Auto) 14.7 H Baso % (Auto) 0.3 Neut # (Auto) 3.55 Lymph # (Auto) 2.30 [place] # (Auto) 0.70 Eos # (Auto) 1.10 H Baso # (Auto) 0.02 Abs Immat Gran (auto) 0.05 Imm/Tot Granulo (auto) 0.6 INR Sodium 139 Potassium 3.9 Chloride 102 Carbon Dioxide 30 Anion Gap 7 BUN 12 Creatinine 1.0 Estimated Creat Clear 56.18 Estimated GFR 67 Glucose 118 H Hemoglobin A1c Calcium 9.9 Total Bilirubin 0.6 Direct Bilirubin 0.2 AST 36 H ALT 33 Alkaline Phosphatase 58 C-Reactive Protein < 0.5 L Total Protein 7.2 Albumin 4.4 Triglycerides 75 Amylase 770 H Lipase 13509 H Urine HCG, Qual Urine Opiates Screen Ur Oxycodone Screen Urine Methadone Screen Ur Barbiturates Screen U Tricyclic Antidepress Ur Phencyclidine Scrn Ur Amphetamines Screen U Methamphetamines Scrn U Benzodiazepines Scrn Urine Cocaine Screen U Marijuana (THC) Screen Ur Drug Screen Comment TTG-6 IgA Ab Stool H. pylori Ag Lab Acknowledgement POC Troponin I 0.[address] scan - abdomen: Radiologist's impression: INDICATION: Upper abdominal pain, diarrhea, nausea.. TECHNIQUE: CT abdomen and pelvis acquired with 64 cc Isovue 370 IV contrast. COMPARISON: None. FINDINGS: Lower chest: Scattered atelectasis. Liver: Unremarkable. Normal in size and attenuation. No suspicious masses. Gallbladder and bile ducts: Unremarkable. No stones or inflammation. No biliary dilatation. Pancreas: Unremarkable. No mass or inflammation. Spleen: Unremarkable. Normal in size. No masses. Adrenal glands: Unremarkable. No nodules. Kidneys: Bilateral renal sinuses. No suspicious masses, stones, or hydronephrosis. GI tract: Mild colonic stool burden. Colonic diverticulosis. Normal in caliber. No sign of mass or inflammation. Normal appendix. Vasculature: Abdominal aorta is normal in caliber. Mesenteric arteries are patent. Lymph nodes: No lymphadenopathy. Peritoneum/Abdominal Wall: Unremarkable. No sign of mass or infiltration. No free air or significant free fluid. Pelvis: Unremarkable. Bones: Unremarkable for age. IMPRESSION: No acute intra-abdominal/pelvic abnormality. US - abdomen: Radiologist's impression: INDICATION: Right upper quadrant pain COMPARISON: none TECHNIQUE: Real time fleming scale imaging and color Doppler analysis was performed of the right upper quadrant. FINDINGS: The patient`s liver is of normal size and has uniform echogenicity. There is a normal appearance of the hepatic IVC. There is no evidence of ascites. The gallbladder is of normal size and there is no evidence of intraluminal stones or sludge. The gallbladder wall measures 2.2 mm in thickness. The common bile duct is of normal size and measures 4.3 mm in diameter at the level of the arlin hepatis. The pancreas is not well visualized. The right kidney measures 9.8 cm. Pelviectasis suspected measuring 1.3 cm. IMPRESSION: Mild right renal pelviectasis measures 1.3 cm. MRI - abdomen: Radiologist's impression: INDICATION: Pancreatitis COMPARISON: None. TECHNIQUE: Mulitplanar, mutliparametric MR imaging of the abdomen without intravenous contrast, MRCP with 3D reconstructions. FINDINGS: Lower chest: Unremarkable Liver: Hepatic cyst with calcified granuloma at the hepatic dome. Gallbladder: Distended. Bile ducts: No biliary ductal dilation. No evidence of choledocholithiasis. Spleen: Unremarkable. Pancreas: Unremarkable. Adrenal glands: Unremarkable. Kidneys and Ureters: Bilateral parapelvic cysts. Lymph Nodes: No enlarged lymph nodes. Vasculature: Unremarkable. Bowel: Unremarkable Peritoneum: Unremarkable. Abdominal wall: Unremarkable Bones: Unremarkable. IMPRESSION: No MR evidence of pancreatitis. No choledocholithiasis. Discharge Plan Discharge Disposition: Home, Self-Care Date of Admission: 11/22/24 18:21 Attending Provider on Discharge: Jona Lyn Primary Care Provider: Miguel Katz Condition: Improved Anticipated Discharge Date/Time: 11/23/24 15:06 Discharge Medications: New esomeprazole magnesium 40 mg capsule,delayed release(DR/EC) 40 mg PO DAILY Qty: 30 0RF No Action No Known Home Medications Discharge Orders: Discharge Order (Routine); Ordered 11/23/24 Ordered By: Jona Lyn Activity Level: No Restrictions Discharge Diet: Low Fat/Low Cholesterol Follow Up Appointments: [facility] [Provider Group] (Make an appointment with a dispensing optician apprentice with an interest in pancreatic diseases at [facility] - next available appointment) Miguel Katz MD [Primary Care Provider] - Forms: [employer] Info Instructions
--- NOTE | 2024-11-23 16:46 | PC.NURSE ---
Nursing Care Hours: [id number] Pt this shift calm and cooperative, alert and oriented. IV ketorolac given this AM for pain, effective. No c/o pain rest of shift. MRI done. Pt up independently and states she feels hungry. Advanced to regular diet and pt tolerated it well. Only c/o is feeling full and needing to be able to sit up straight almost stretching the abdomen. Reported to hospitalist. Pt dc'd. IV removed, instructions went over with pt and spouse. Ambulated off unit in stable condition.
[2024-11-24 03:33] LABS: Hemoglobin A1C* 5.7 % (0-5.6)
[2024-11-25 17:20] LABS: Tissue Transglut Ab IgA <1.02 FLU (0.00-4.99)
== END 2024-11-23 16:40 | disposition home or self-care (01) ==
LOC: ED 18:01 → MEDSURG 18:21
PROVIDERS: Family Medicine; Admitting Provider Internal Medicine; Emergency Provider Family Medicine; PCP Family Medicine; Visit Provider Internal Medicine
DX: K85.90 Acute pancreatitis without necrosis or infection, unspecified (principal); D72.10 Eosinophilia, unspecified; R74.8 Abnormal levels of other serum enzymes; R10.13 Epigastric pain; K21.9 Gastro-esophageal reflux disease without esophagitis
CPT/HCPCS: 36415; 74177; 74181; 76705; 80048; 80076; 80306; 81025; 82150; 82787; 83036; 83690; 84478; 84484; 85025; 85610; 86140; 86364; 87338; 93005; 96361; 96374; 96375; 96376; 99284; 99285; A9270; G0378; J1885; J2270; J2470; J7030; Q9967